=== PATIENT | female | born 1955 | race Hispanic/Latino ===

== ENCOUNTER 2018-02-15 22:01 | Emergency (ER) | payer OTHER ==
[2018-02-15] MEDS ORDERED: Sodium Chloride 0.9% 1,000 ML IV STA (22:21)
[2018-02-15 22:25] VITALS: TEMP 98.8; O2SAT 96; BMI 26.6
--- NOTE | 2018-02-15 22:35 | ED PDOC ---
Arrival/HPI - General Chief Complaint: Syncope Time Seen by Provider: 02/15/18 22:06 Historian: Patient - History of Present Illness Narrative History of Present Illness (Text): 02/15/18 22:30 Patient is a 62 year old female who was brought to the Emergency department by EMS for experiencing a syncopal event. Patient reports that she is a credit cashier at a store and suddenly had a syncopal event that lasted for a few seconds. She doesn't remember the episode happening. She notes that she hadn't eaten lunch today and didn't drink plenty of water throughout the day. Patient mentions that the A/C in the store wasn't working and so the store was hot. She hasn't followed up with her PMD for the past 5 years. She notes that EMS measured her blood sugar level and found it to be normal. patient denies any headaches, dizziness, nausea, vomiting, melena, palpitations, chest pain, dyspnea, or any other complaints at this time. Of note patient denies taking any medications for blood pressure and also denies being on any blood thinners or Aspirin. Time/Duration: Prior to Arrival Symptom Onset: Sudden Symptom Course: Resolved Context: Standing Past Medical History - Provider Review Nursing Documentation Reviewed: Yes - Psychiatric Hx Substance Use: No Family/Social History - Physician Review Nursing Documentation Reviewed: Yes Family/Social History: No Known Family HX Smoking Status: Never Smoked Hx Alcohol Use: No Hx Substance Use: No Allergies/Home Meds Allergies/Adverse Reactions: Allergies quiles Allergy (Verified 02/15/18 22:12) ANAPHYLAXIS mold Allergy (Verified 02/15/18 22:12) ANAPHYLAXIS Review of Systems - Physician Review All systems were reviewed & negative as marked: Yes - Review of Systems Respiratory: absent: SOB Cardiovascular: absent: Chest Pain, Palpitations Gastrointestinal: absent: Stool Changes (No melena or black tarry stool), Nausea , Vomiting Neurological: absent: Headache, Dizziness Physical Exam Vital Signs Temp Pulse Resp BP Pulse Ox 02/16/18 00:37 88 24 174/89 H 96 02/16/18 00:26 217/117 H 02/15/18 23:28 100 H 20 206/110 H 96 02/15/18 22:14 98.8 F 114 H 18 242/135 H 96 Temperature: Afebrile Blood Pressure: Hypertensive Pulse: Tachycardic Respiratory Rate: Normal Appearance: Positive for: Well-Appearing Mental Status: Positive for: Alert and Oriented X 3 - Systems Exam Head: Present: Normocephalic, Contusion (small contusion at back of head) Pupils: Present: PERRL Extroacular Muscles: Present: EOMI Conjunctiva: Present: Normal Mouth: Present: Moist Mucous Membranes Neck: Present: Normal Range of Motion Respiratory/Chest: Present: Clear to Auscultation, Good Air Exchange. No: Respiratory Distress, Accessory Muscle Use Cardiovascular: Present: Regular Rate and Rhythm, Murmurs (systolic murmur heard at the right upper sternal border), Normal S1, S2 Abdomen: No: Tenderness, Distention, Peritoneal Signs Back: Present: Normal Inspection Upper Extremity: Present: Normal Inspection. No: Cyanosis, Edema Lower Extremity: Present: Normal Inspection. No: Edema Neurological: Present: GCS=15, CN II-XII Intact, Speech Normal Skin: Present: Warm, Dry, Normal Color. No: Rashes Psychiatric: Present: Alert, Oriented x 3, Normal Insight, Normal Concentration Medical Decision Making ED Course and Treatment: 02/15/18 22:40 Impression: Patient is a 62 year old female who was brought to the Emergency department by EMS for experiencing a syncopal event. Differential Diagnosis included but are not limited to: Valvular disease vs. Vasovagal syncope vs. hypertensive emergency vs. Seizure Plan: --Head CT without contrast --EKG --labs --Blood work --Chest X-ray --Ativan --IV fluids --Urinalysis -- Reassess and disposition Progress Notes: 02/15/18 22:31 EKG shows sinus tachycardia at 108 BPM with RBBB and LAD. Some ST depression in lead 5 and 6, and T wave inversion which is appropriate in the setting of RBBB. with no prior for comparison. Interpreted by me. 02/15/18 23:51 Chest X-ray shows no acute processes. Interpreted by me. 02/15/18 23:51 Will admit patient for syncope and rule out cardiogenic syncope. Patient has uncontrolled hypertension and will receive IV antihypertensive medication for accelerated hypertension. 02/16/18 00:06 Discussed case with , who is made aware of patient and agrees to admit patient under his service to rule out cardiogenic syncope and evaluate patient for murmur and accelerated hypertension. 02/15/18 00:11 Discussed case with medical sonographer, who was made aware of the patient and the plan. 02/16/18 00:21 Patient is refusing admission due to anxiety and is signing out against medical advice. Patient will be started on antihypertensive and referred her to cardiology in clinic. Leaving Against Medical Advice (AMA): The patient is choosing to leave against medical advice. I have personally explained to the patient that choosing to do so may result in permanent bodily harm or . I have discussed at great length that without further evaluation and monitoring there may be unforeseen circumstances and/or deterioration causing permanent bodily harm or as a result of their choice. The patient is alert, oriented, and shows the mental capacity to make clear decisions regarding the patients health care at this time. The patient continues to wish to leave against medical advice. In light of the patients decision to leave against medical advice, follow-up has been arranged and the patient is aware of the importance to following up as instructed. The patient has been advised that they should return to the emergency room immediately if they change their mind at any time, or if their condition begins to change or worsen in any way. 02/16/18 CT Head Without Intravenous Contrast: FINDINGS: Brain: There is dilatation of sulci gyri and ventricles. There is no midline shift. There is decreased attenuation in periventricular white matter. There are age-indeterminate lacunar infarcts in the basal ganglia bilaterally. There are no focal masses. There are no focal hemorrhages. Vargas-white differentiation is visualized. Ventricles: See above Bones: Cranial vault is intact. Soft tissues: unremarkable Sinuses: There is extensive sinus disease. There is complete opacification of the right maxillary sinus. There is disruption of the medial wall of the right maxillary sinus with extension of soft tissue mass into the nasal cavity. There is a large retention cyst/polyp in the left maxillary sinus with mucoperiosteal thickening. There is frontal, ethmoid and sphenoid disease. Ears and mastoids: Middle ears and mastoids are unremarkable. There is debris in the left external auditory canal Orbits: Orbital contents are unremarkable. IMPRESSION: Atrophy and small vessel disease, no bleed; extensive sinus disease with possible nasoantral polyposis. Dictated and Authenticated by: Osiris Alfred MD 02/16/18 04:00 called patient back and discussed Sinus disease vs mass. referred to dr. yo. pt given number, no acute symptoms. no abx old lacunar infarcts discussed with patient, advised f/u with pcp. advised daily baby Aspirin for prevention. given amlodipine for BP - Lab Interpretations Lab Results: 02/15/18 22:47 02/15/18 22:47 Lab Results 02/15/18 23:59: Urine Color Yellow, Urine Appearance Cloudy, Urine pH 6.0, Ur Specific [place] >= 1.030, Urine Protein 100 H, Urine Glucose (UA) Negative, Urine Ketones 15 H, Urine Blood Moderate H, Urine Nitrate Positive H, Urine Bilirubin Negative, Urine Urobilinogen 0.2, Ur Leukocyte Esterase Large H, Urine RBC 1 - 3, Urine WBC 20 - 25, Ur Epithelial Cells 0 - 2, Urine Bacteria Many 02/15/18 22:47: PT 13.1 H, INR 1.15 H, APTT 32.8 02/15/18 22:47: WBC 8.7, RBC 5.27, Hgb 15.5, Hct 45.0, MCV 85.4, MCH 29.4, MCHC 34.4, RDW 13.0, Plt Count 228, MPV 9.6, Gran % 77.1 H, Lymph % (Auto) 14.7 L, [place] % (Auto) 7.4 H, Eos % (Auto) 0.5 L, Baso % (Auto) 0.3, Gran # 6.73 H, Lymph # (Auto) 1.3, [place] # (Auto) 0.7 H, Eos # (Auto) 0.0, Baso # (Auto) 0.03 02/15/18 22:47: Sodium 144, Potassium 3.6, Chloride 106, Carbon Dioxide 23, Anion Gap 19, BUN 25 H, Creatinine 1.0, Est GFR ( Amer) > 60, Est GFR ( Non-Af Amer) 56, Random Glucose 137 H, Calcium 9.5, Total Bilirubin 0.8, AST 28 , ALT 23, Alkaline Phosphatase 86, Lactate Dehydrogenase 571, Total Creatine Kinase 110, Troponin I < 0.01, NT-Pro-B Natriuret Pep 253, Total Protein 8.6 H, Albumin 4.4, Globulin 4.2, Albumin/Globulin Ratio 1.1 02/15/18 22:07: POC Glucose (mg/dL) 122 H I have reviewed the lab results: Yes - RAD Interpretation Radiology Orders: 02/15/18 22:13 HEAD W/O CONTRAST [CT] Stat X-RAY [CHEST PORTABLE] [RAD] Stat [facility] [employer] Manager: ED Physician, Radiologist - EKG Interpretation Interpreted by ED Physician: Yes Type: 12 lead EKG - Medication Orders Current Medication Orders: Discontinued Medications Sodium Chloride (Sodium Chloride 0.9%) 1,000 mls @ 999 mls/hr IV .Q1H1M STA Stop: 02/15/18 23:21 Last Admin: 02/15/18 22:53 Dose: 999 mls/hr eMAR Start Stop Document 02/15/18 22:53 CNR (Rec: 02/15/18 22:53 CNR [id number]) Intravenous Solution Start Date 02/15/18 Start Time 22:53 Labetalol HCl (Trandate) 20 mg IV STAT STA Stop: 02/16/18 00:18 Last Admin: 02/16/18 00:26 Dose: 20 mg eMAR Start Stop Document 02/16/18 00:26 CNR (Rec: 02/16/18 00:26 CNR [id number]) Intravenous Solution Start Date 02/16/18 Start Time 00:26 MAR Pulse and Blood Pressure Document 02/16/18 00:26 CNR (Rec: 02/16/18 00:26 CNR [id number]) Blood Pressure Blood Pressure (100/60-150/90) 217/117 Lorazepam (Ativan) 1 mg IVP ONCE ONE PRN Reason: Protocol Stop: 02/15/18 22:23 Last Admin: 02/15/18 22:53 Dose: 1 mg IVP Administration Document 02/15/18 22:53 CNR (Rec: 02/15/18 22:53 CNR [id number]) Charges for Administration # of IVP Administrations 1 - Scribe Statement The provider has reviewed the documentation as recorded by the Scribe Henry العلي Provider Scribe Attestation: All medical record entries made by the Scribe were at my direction and personally dictated by me. I have reviewed the chart and agree that the record accurately reflects my personal performance of the history, physical exam, medical decision making, and the department course for this patient. I have also personally directed, reviewed, and agree with the discharge instructions and disposition. Disposition/Present on Arrival - Present on Arrival Any Indicators Present on Arrival: No History of DVT/PE: No History of Uncontrolled Diabetes: No Urinary Catheter: No History of Decub. Ulcer: No History Surgical Site Infection Following: None - Disposition Have Diagnosis and Disposition been Completed?: Yes Diagnosis: Syncope and collapse, Hypertension, Sinus disease, Old cerebrovascular accident (CVA) without late effect Disposition: AGAINST MEDICAL ADVICE Disposition Time: 23:00 Patient Plan: Observation Condition: IMPROVED Discharge Instructions (ExitCare): Syncope (Fainting), Malignant Hypertension, Syncope (ED) Prescriptions: amLODIPine [Norvasc] 5 mg PO DAILY #30 tab Referrals: [facility], [Non-Staff] - Follow up with primary Gerard Guillermo MD [Staff Provider] - Follow up with primary (for abnormal EKG and passing out, get a stress test) Forms: [employer] (Korean)
[2018-02-15 22:55] LABS: BASO # 0.03 K/mm3 (0.0-2.0); BASO % 0.3 % (0.0-3.0); EOS % 0.5 % (1.5-5.0); GRAN # 6.73 (1.4-6.5); GRAN % 77.1 % (50.0-68.0); HEMOGLOBIN 15.5 g/dL (12.0-16.0); LYMPH # 1.3 (1.2-3.4); LYMPH % 14.7 % (22.0-35.0); MEAN CELL VOLUME 85.4 fl (80.0-105.0); MEAN CORPUSCULAR HEMOGLOBIN 29.4 pg (25.0-35.0); MEAN CORPUSCULAR HGB CONC 34.4 g/dl (31.0-37.0); MEAN PLATELET VOLUME 9.6 fl (7.0-11.0); MONO # 0.7 (0.1-0.6); MONO % 7.4 % (1.0-6.0); RBC 5.27 10^6/uL (3.5-6.1); WHITE BLOOD COUNT 8.7 10^3/ul (4.5-11.0)
[2018-02-15 23:03] LABS: ALB/GLOB RATIO 1.1 (1.1-1.8); ALBUMIN 4.4 g/dL (3.0-4.8); ALT/SGPT 23 U/L (7-56); AST/SGOT 28 U/L (14-36); BLOOD UREA NITROGEN 25 mg/dL (7-21); CALCIUM 9.5 mg/dL (8.4-10.5); GFR AFRICAN-AMERICAN > 60; GFR NON-AFRICAN AMERICAN 56
[2018-02-15 23:07] LABS: INR 1.15 (0.93-1.08); PARTIAL THROMBOPLASTIN TIME 32.8 Seconds (25.1-36.5); PROTHROMBIN TIME 13.1 SECONDS (9.4-12.5)
[2018-02-15 23:14] LABS: B-TYPE NATRIURETIC PEPTIDE 253 pg/mL (0-450); TROPONIN I < 0.01 ng/mL
--- NOTE | 2018-02-16 00:10 | CT ---
EXAM: CT Head Without Intravenous Contrast EXAM DATE/TIME: 02/15/2018 10:13 PM CLINICAL HISTORY: 62 years old, female; Signs and symptoms; Syncope and collapse; Additional info: Syncope HTN TECHNIQUE: Axial computed tomography images of the head/brain without intravenous contrast. All CT scans at this facility use at least one of these dose optimization techniques: automated exposure control; mA and/or kV adjustment per patient size (includes targeted exams where dose is matched to clinical indication); or iterative reconstruction. Coronal and sagittal reformatted images were created and reviewed. COMPARISON: There are no prior studies for comparison. FINDINGS: Brain: There is dilatation of sulci gyri and ventricles. There is no midline shift. There is decreased attenuation in periventricular white matter. There are age-indeterminate lacunar infarcts in the basal ganglia bilaterally. There are no focal masses. There are no focal hemorrhages. Vargas-white differentiation is visualized. Ventricles: See above Bones: Cranial vault is intact. Soft tissues: unremarkable Sinuses: There is extensive sinus disease. There is complete opacification of the right maxillary sinus. There is disruption of the medial wall of the right maxillary sinus with extension of soft tissue mass into the nasal cavity. There is a large retention cyst/polyp in the left maxillary sinus with mucoperiosteal thickening. There is frontal, ethmoid and sphenoid disease. Ears and mastoids: Middle ears and mastoids are unremarkable. There is debris in the left external auditory canal Orbits: Orbital contents are unremarkable. IMPRESSION: Atrophy and small vessel disease, no bleed; extensive sinus disease with possible nasoantral polyposis
[2018-02-16] MEDS ORDERED: Labetalol 5 mg/ml Inj 20ML IV STA (00:17)
[2018-02-16 00:23] LABS: URINE APPEARANCE CLOUDY (CLEAR); URINE BILIRUBIN NEGATIVE (NEGATIVE); URINE BLOOD MODERATE (NEGATIVE); URINE COLOR YELLOW (YELLOW); URINE GLUCOSE (UA) NEGATIVE (NEGATIVE); URINE LEUKOCYTE ESTERASE LARGE Leu/uL (NEGATIVE); URINE PROTEIN 100 mg/dL (<30 mg/dL); URINE UROBILINOGEN 0.2 E.U./dL (<1 E.U./dL)
[2018-02-16 00:38] VITALS: BP 174/89; PULSE 88; RESP 24
[2018-02-16 00:44] LABS: URINE BACTERIA MANY (NEG); URINE EPITHELIAL CELLS 0 - 2 /hpf (0-5); URINE WBC 20 - 25 /hpf (0-6)
--- NOTE | 2018-02-16 10:10 | RAD ---
HISTORY: syncope HTN COMPARISON: No prior. FINDINGS: LUNGS: Poor inspiration with low lung volumes, crowded bronchovascular markings and mild bibasilar atelectasis. PLEURA: No significant pleural effusion identified, no pneumothorax apparent. CARDIOVASCULAR: Heart size appears mildly enlarged. OSSEOUS STRUCTURES: No significant abnormalities. VISUALIZED UPPER ABDOMEN: Normal. OTHER FINDINGS: None. IMPRESSION: Poor inspiration with low lung volumes, crowded bronchovascular markings and mild bibasilar atelectasis.
--- NOTE | 2018-02-16 19:00 | CARD ---
APPROVED REPORT EKG Measurement Heart [id number] <Conclusion> Sinus tachycardia Right bundle branch block Abnormal ECG
== END 2018-02-16 00:37 | disposition left against medical advice (07) ==
LOC: ED 22:01
DX: R55 Syncope and collapse (principal); I10 Essential (primary) hypertension; J32.9 Chronic sinusitis, unspecified; Z86.73 Personal history of transient ischemic attack (TIA), and cerebral infarction without residual deficits
CPT/HCPCS: 70450; 71045; 80053; 81001; 82550; 82948; 83615; 83880; 84484; 85025; 85610; 85730; 87086; 87181; 93005; 96374; 99285; J2060; J7030